=== PATIENT | female | born 1950 | race Caucasian/White ===

== ENCOUNTER → 2016-11-24 | Outpatient (REF) | payer MEDICARE, OTHER ==
[2016-11-24 13:28] LABS: BASO % 0.3 % (0.0-1.0); EOS # 0.2 K/mm3 (0.0-0.50); EOS % 3.2 % (0.0-3.0); LARGE UNSTAINED CELL # 0.1 K/mm3 (0.0-0.4); LARGE UNSTAINED CELL % 1.9 % (0.0-4.0); LYMPH # 1.6 K/mm3 (1.5-4.5); LYMPH % 28.7 % (24.0-44.0); MEAN CORPUSCULAR HEMOGLOBIN 30.4 pg (27.0-33.0); MEAN CORPUSCULAR HGB CONC 33.7 g/dl (32.0-36.5); MEAN CORPUSCULAR VOLUME 90.4 fl (80.0-96.0); MONO # 0.4 K/mm3 (0.0-0.8); NEUTROPHILS # 3.2 K/mm3 (1.8-7.7); PLATELET COUNT, AUTOMATED 263 k/mm3 (150-450); RED CELL DISTRIBUTION WIDTH 11.8 % (11.5-14.5); WHITE BLOOD COUNT 5.5 K/mm3 (4.0-10.0)
[2016-11-24 14:12] LABS: ALBUMIN 3.8 GM/DL (3.2-5.2); ALBUMIN/GLOBULIN RATIO 1.36 (1.00-1.93); ALKALINE PHOSPHATASE 117 U/L (45-117); ALT/SGPT 27 U/L (12-78); ANION GAP 7 MEQ/L (8-16); AST/SGOT 16 U/L (15-37); BILIRUBIN,TOTAL 0.3 MG/DL (0.2-1.0); BLOOD UREA NITROGEN 12 MG/DL (7-18); CALCIUM LEVEL 8.7 MG/DL (8.8-10.2); CARBON DIOXIDE LEVEL 30 MEQ/L (21-32); CHLORIDE LEVEL 106 MEQ/L (98-107); CHOLESTEROL LEVEL 192 MG/DL (<200); CREATININE FOR GFR 0.68 MG/DL (0.55-1.02); GLOMERULAR FILTRATION RATE > 60.0 (>45); GLUCOSE, FASTING 110 MG/DL (80-110); POTASSIUM SERUM 4.1 MEQ/L (3.5-5.1); SODIUM LEVEL 143 MEQ/L (136-145); TOTAL PROTEIN 6.6 GM/DL (6.4-8.2); TRIGLYCERIDES LEVEL 124 MG/DL (<150)
== END | disposition home or self-care (01) ==
LOC: M LABNEURO 12:11
PROVIDERS: ATTEND Family Medicine
DX: E78.5 Hyperlipidemia, unspecified (principal); E55.9 Vitamin D deficiency, unspecified

== ENCOUNTER → 2017-05-04 | Outpatient (REF) | payer MEDICARE, OTHER | LOC: M LABDRAW1 17:18 | PROVIDERS: ATTEND Family Medicine | DX: M12.9 Arthropathy, unspecified (principal) ==

== ENCOUNTER → 2017-09-01 | Outpatient (CLI) | payer MEDICARE, OTHER ==
--- NOTE | 2017-09-01 13:14 | REP ---
Bilateral screening digital mammogram: There are no palpable abnormalities or other breast complaints. The patient states she has not had a clinical breast exam in over a year. Comparison is 07/22/2012. There is dense breast parenchyma, unchanged. There has been no interval development of masses, areas of structural distortion or clusters of microcalcifications typical of malignancy. Impression: There is no evidence of malignancy. BIRADS category 1 negative mammogram. The patient should have a repeat mammogram in 1 year. This mammogram was interpreted with the aid of an FDA-approved computer-aided detection system. A. Negative x-ray reports should not delay biopsy if a dominant or clinically suspicious mass is present. B. Not all breast cancers are t identified by x-ray. C. Adenosis and dense breasts may obscure an underlying neoplasm. The patient letter M1 dense breasts.
--- NOTE | 2017-09-02 08:24 | DEXA ---
AP SPINE L1 - L4 0.937 -2.1 -0.5 LT FEMUR TOTAL 0.737 -2.1 -0.8 RT FEMUR TOTAL 0.768 -1.9 -0.6 TOTAL BODY TOTAL OTHER DUAL FEMUR FRAX* ASSESSMENT Risk factors: 10 year probability of fracture Major osteoporotic fracture % Hip fracture % COMMENTS: There is low bone density of the spine. There is osteoporosis of the hips. The density of the spine has decreased 20.4% since the initial exam on 2002. The spine density has decreased 2.0% since the most recent exam on 11/27/2014. The density of the left hip has decreased 18.1% since the initial exam on 2002. The density of the left hip has decreased 1.6% since the most recent exam on . The density of the right hip has decreased 13.0% since the most recent exam on 11/29/2002. The density of the right hip has increased 0.3% since the most recent exam on . FOLLOW-UP: Recommendation for the next bone density exam: 2 years. ELISEO
== END ==
LOC: M WHC 10:59
PROVIDERS: ATTEND Family Medicine
DX: M85.80 Other specified disorders of bone density and structure, unspecified site (principal); Z12.31 Encounter for screening mammogram for malignant neoplasm of breast; M94.9 Disorder of cartilage, unspecified
CPT/HCPCS: 77080; G0202

== ENCOUNTER 2017-11-11 07:27 | Day surgery (SDC) | payer MEDICARE, OTHER ==
[2017-11-11] MEDS ORDERED: PROPOFOL 200 MG/20 ML VIAL As Ordered (07:41)
[2017-11-11] MEDS ORDERED: LIDOCAINE 2% MDV 20 ML VIAL As Ordered ×2 (07:41→08:04)
[2017-11-11] MEDS: NS 1,000 ML IV (07:41)
== END 2017-11-11 08:44 | disposition home or self-care (01) ==
LOC: M OPP 07:27
DX: R12 Heartburn (principal); K21.9 Gastro-esophageal reflux disease without esophagitis; K22.719 Barrett's esophagus with dysplasia, unspecified; L30.9 Dermatitis, unspecified; J45.909 Unspecified asthma, uncomplicated; E78.00 Pure hypercholesterolemia, unspecified; Z79.2 Long term (current) use of antibiotics; Z79.899 Other long term (current) drug therapy; Z78.0 Asymptomatic menopausal state; Z91.89 Other specified personal risk factors, not elsewhere classified; Z90.49 Acquired absence of other specified parts of digestive tract; Z87.891 Personal history of nicotine dependence; Z87.790 Personal history of (corrected) congenital malformations of face and neck
CPT/HCPCS: 43239

== ENCOUNTER → 2017-12-29 | Outpatient (REF) | payer MEDICARE, OTHER ==
[2017-12-29 17:56] LABS: COMPLEMENT C3 109 MG/DL (90-180); COMPLEMENT C4 38.9 MG/DL (10-40); IMMUNOGLOBULIN E 32.2 IU/ML (<100); IMMUNOGLOBULIN G 639 MG/DL (681-1648); IMMUNOGLOBULIN M 87.2 MG/DL (40-230)
[2018-01-04 00:06] LABS: ALPHA 1 ANTITRYPSIN 87 mg/dL (90-200)
[2018-01-04 00:06] LABS: D001-IgE D pteronyssinus <0.10 kU/L (Class 0); E001-IgE Cat Epith/Dander 0.19 kU/L (Class 0/I); E005-IgE Dog Dander 0.73 kU/L (Class II); F002-IgE Milk < 0.10 kU/L (Class 0); F004-IgE Wheat < 0.10 kU/L (Class 0); F013-IgE Peanut < 0.10 kU/L (Class 0); F014-IgE Soybean < 0.10 kU/L (Class 0); F026-IgE Pork < 0.10 kU/L (Class 0); F027-IgE Beef < 0.10 kU/L (Class 0); F245-IgE Egg, Whole < 0.10 kU/L (Class 0); FX02-IgE Food Mix (Sea Foods) Negative (.); G002-IgE Bermuda Grass 0.11 kU/L (Class 0/I); G008-IgE Kentucky Bluegrass 0.71 kU/L (Class II); M001-IgE Penicillium chrysogen < 0.10 kU/L (Class 0); M002 IgE Cladosporium herbaru < 0.10 kU/L (Class 0); M003 IgE Aspergillus fumigatu < 0.10 kU/L (Class 0); M006-IgE Alternaria alternata < 0.10 kU/L (Class 0); T001-IgE Maple/Box Elder < 0.10 kU/L (Class 0); T003-IgE Common Silver Birch < 0.10 kU/L (Class 0); T006-IgE Cedar, Mountain < 0.10 kU/L (Class 0); T007-IgE Oak, White < 0.10 kU/L (Class 0); T008-IgE Elm, American < 0.10 kU/L (Class 0); T015-IgE Ash, White < 0.10 kU/L (Class 0); T041-IgE Hickory, White < 0.10 kU/L (Class 0); T070-IgE White Mulberry < 0.10 kU/L (Class 0); W001-IgE Ragweed, Short 1.03 kU/L (Class II); W009-IgE Plantain, English < 0.10 kU/L (Class 0); W014-IgE Pigweed, Rough < 0.10 kU/L (Class 0); W018-IgE Sheep Sorrel < 0.10 kU/L (Class 0)
== END ==
LOC: M LABNEURO 14:15
DX: J30.89 Other allergic rhinitis (principal); J30.1 Allergic rhinitis due to pollen; J30.81 Allergic rhinitis due to animal (cat) (dog) hair and dander
CPT/HCPCS: 82785

== ENCOUNTER → 2018-01-01 | Outpatient (REF) | payer MEDICARE, OTHER ==
[2018-01-01 13:23] LABS: ALKALINE PHOSPHATASE 106 U/L (45-117); ALT/SGPT 31 U/L (12-78); ANION GAP 5 MEQ/L (8-16); AST/SGOT 25 U/L (7-37); BILIRUBIN,TOTAL 0.3 MG/DL (0.2-1.0); BLOOD UREA NITROGEN 13 MG/DL (7-18); CALCIUM LEVEL 8.5 MG/DL (8.8-10.2); CARBON DIOXIDE LEVEL 29 MEQ/L (21-32); CHLORIDE LEVEL 107 MEQ/L (98-107); CREATININE FOR GFR 0.64 MG/DL (0.55-1.30); GLOMERULAR FILTRATION RATE > 60.0 (>45); GLUCOSE, FASTING 112 MG/DL (70-100); POTASSIUM SERUM 4.6 MEQ/L (3.5-5.1); SODIUM LEVEL 141 MEQ/L (136-145)
[2018-01-01 13:24] LABS: ALBUMIN 3.7 GM/DL (3.2-5.2); ALBUMIN/GLOBULIN RATIO 1.28 (1.00-1.93); CHOLESTEROL LEVEL 200 MG/DL (<200); CHOLESTEROL RISK RATIO 4.166 (<5); HDL CHOLESTEROL 48 MG/DL (>40); NON-HDL-C 152 MG/DL; TOTAL PROTEIN 6.6 GM/DL (6.4-8.2); TRIGLYCERIDES LEVEL 175 MG/DL (<150)
[2018-01-01 13:53] LABS: BASO % 0.4 % (0.0-1.0); EOS # 0.2 10^3/uL (0.0-0.50); EOS % 3.9 % (0.0-3.0); HEMATOCRIT 37.9 % (36.0-47.0); HEMOGLOBIN 12.9 g/dl (12.0-16.0); IMMATURE GRANULOCYTE % 0.4 % (0-3.0); LYMPH # 1.3 10^3/uL (1.5-4.5); LYMPH % 25.3 % (24.0-44.0); MEAN CORPUSCULAR HEMOGLOBIN 31.3 pg (27.0-33.0); MONO # 0.5 10^3/uL (0.0-0.8); MONO % 10.1 % (0.0-5.0); NEUTROPHILS # 3.1 10^3/uL (1.8-7.7); NEUTROPHILS % 59.9 % (36.0-66.0); PLATELET COUNT, AUTOMATED 220 10^3/uL (150-450); RED BLOOD COUNT 4.12 10^6/uL (4.00-5.40); RED CELL DISTRIBUTION WIDTH 12.1 % (11.5-14.5); WHITE BLOOD COUNT 5.1 10^3/uL (4.0-10.0)
== END ==
LOC: M LABNEURO 09:21
DX: E78.2 Mixed hyperlipidemia (principal)
CPT/HCPCS: 80053

== ENCOUNTER → 2018-12-14 | Outpatient (CLI) | payer MEDICARE, OTHER ==
[~2018-12-14] MED LIST: BREO1INH3 INH; CENT1TAB19 PO; SIMV10TA2 PO; VITA50005
[2018-12-14 12:03] LABS: ALBUMIN 3.6 GM/DL (3.2-5.2); ALT/SGPT 23 U/L (12-78); BILIRUBIN,TOTAL 0.4 MG/DL (0.2-1.0); BLOOD UREA NITROGEN 12 MG/DL (7-18); CALCIUM LEVEL 8.7 MG/DL (8.8-10.2); CARBON DIOXIDE LEVEL 29 MEQ/L (21-32); CHLORIDE LEVEL 105 MEQ/L (98-107); CHOLESTEROL LEVEL 209 MG/DL (<200); CHOLESTEROL RISK RATIO 4.265 (<5); CREATININE FOR GFR 0.56 MG/DL (0.55-1.30); GLOMERULAR FILTRATION RATE > 60.0 (>45); GLUCOSE, FASTING 110 MG/DL (70-100); HDL CHOLESTEROL 49 MG/DL (>40); LDL CHOLESTEROL 122 MG/DL (<100); NON-HDL-C 160 MG/DL; POTASSIUM SERUM 4.2 MEQ/L (3.5-5.1); SODIUM LEVEL 140 MEQ/L (136-145); TOTAL PROTEIN 6.4 GM/DL (6.4-8.2); TRIGLYCERIDES LEVEL 188 MG/DL (<150)
== END ==
LOC: M LAB 10:27
PROVIDERS: ATTEND Family Medicine
DX: E78.2 Mixed hyperlipidemia (principal)

== ENCOUNTER → 2019-01-21 | Outpatient (CLI) | payer MEDICARE, OTHER ==
--- NOTE | 2019-01-21 16:44 | REPMRS ---
Patient History The patient states she has not had a clinical breast exam in over a year. Family history of breast cancer at age 50 or over in mother, breast cancer at age 50 or over in maternal grandmother, colorectal cancer at age 50 or over in maternal grandfather, breast cancer at age 50 or over in maternal cousin, breast cancer at age 50 or over in maternal cousin, colorectal cancer in maternal cousin, breast cancer in maternal cousin. Benign excisional biopsy of the right breast, 1973. Benign core biopsy of the left breast. Digital Woman Screen Mammo: January 21, 2019 - Exam #: [id number] Bilateral CC and MLO view(s) were taken. Technologist: Kiki yLn Technologist Prior study comparison: September 01, 2017, digital woman screen mammo performed at [facility]. March 12, 2016, digital woman screen mammo performed at [facility]. FINDINGS: The breast tissue is heterogeneously dense. This may lower the sensitivity of mammography. There has been no change in the appearance of the mammogram from the prior studies. There is a moderate amount of residual fibroglandular tissue which is fairly symmetric. There is no interval development of dominant mass, architectural distortion, or clustered microcalcification typical of malignancy. Scattered lymph nodes are seen in the axillae. 3-D tomosynthesis shows no additional findings. No significant changes when compared with prior studies. Assessment: BI-RADS/ACR category 2 mammogram. Benign Findings. Recommendation Routine screening mammogram in 1 year (for women over age 40). This mammogram was interpreted with the aid of an FDA-approved computer-aided dectection system. A. Negative x-ray reports should not delay biopsy if a dominant or clinically suspicious mass is present. B. Four to eight percent of cancers are not identified by mammography. C. Adenosis and dense breast may obscure an underlying neoplasm. Electronically Signed By: Melo Amaro MD 01/21/19 [id number]
== END ==
LOC: M WHC 11:23
PROVIDERS: ATTEND Family Medicine
DX: Z12.31 Encounter for screening mammogram for malignant neoplasm of breast (principal); Z80.3 Family history of malignant neoplasm of breast

== ENCOUNTER → 2019-01-25 | Outpatient (REF) | payer MEDICARE, OTHER ==
[2019-01-25 14:24] LABS: ALBUMIN 3.7 GM/DL (3.2-5.2); ALT/SGPT 25 U/L (12-78); BILIRUBIN,TOTAL 0.3 MG/DL (0.2-1.0); BLOOD UREA NITROGEN 15 MG/DL (7-18); CALCIUM LEVEL 8.6 MG/DL (8.8-10.2); CARBON DIOXIDE LEVEL 27 MEQ/L (21-32); CHLORIDE LEVEL 107 MEQ/L (98-107); CHOLESTEROL LEVEL 171 MG/DL (<200); CHOLESTEROL RISK RATIO 3.166 (<5); CREATININE FOR GFR 0.64 MG/DL (0.55-1.30); GLOMERULAR FILTRATION RATE > 60.0 (>45); GLUCOSE, FASTING 107 MG/DL (70-100); HDL CHOLESTEROL 54 MG/DL (>40); LDL CHOLESTEROL 81 MG/DL (<100); NON-HDL-C 117 MG/DL; POTASSIUM SERUM 4.4 MEQ/L (3.5-5.1); SODIUM LEVEL 140 MEQ/L (136-145); TOTAL PROTEIN 6.8 GM/DL (6.4-8.2); TRIGLYCERIDES LEVEL 179 MG/DL (<150)
== END ==
LOC: M LABNEURO 08:59
PROVIDERS: ATTEND Family Medicine
DX: E78.2 Mixed hyperlipidemia (principal)

== ENCOUNTER → 2019-06-15 | Outpatient (CLI) | payer MEDICARE, OTHER ==
[2019-06-15 17:38] LABS: FREE T4 0.84 NG/DL (0.76-1.46); THYROID STIMULATING HORMONE 0.842 uIU/ML (0.358-3.740)
== END ==
LOC: M LAB 16:16
PROVIDERS: ATTEND Internal Medicine Gastroenterology
DX: R19.7 Diarrhea, unspecified (principal)

== ENCOUNTER → 2019-06-17 | Outpatient (REF) | payer MEDICARE, OTHER | LOC: M LAB REF 15:21 | PROVIDERS: ATTEND Internal Medicine Gastroenterology | DX: R19.7 Diarrhea, unspecified (principal) ==

== ENCOUNTER 2019-08-23 12:08 | Day surgery (SDC) | payer MEDICARE, OTHER ==
[~2019-08-23] VITALS: Ht 149.9 cm; Wt 46.3 kg
[~2019-08-23 12:08] MED LIST changes: +CENT1TAB PO; +EPIN0.3I11 IM; +MONT10TA2 PO; +NS 1,000 ML IV ONE; -VITA50005; +VITA50005 PO; +ZANT150T40 PO; +[UNRECOGNIZED DRUG - OTHER] IM
[2019-08-23] MEDS ORDERED: PROPOFOL 200 MG/20 ML VIAL As Ordered ONE (13:44)
[2019-08-23] MEDS ORDERED: LIDOCAINE 2% INJ 100 MG/5 ML SDV (FOR ANES.) As Ordered ONE (13:44)
--- NOTE | 2019-08-23 14:06 | ROOR ---
Patient Name: Genoveva Krishnamurthy Procedure Date: 08/23/2019 1:40 PM Date of : 1950 Age: 69 Room: [facility] Gender: Female Note Status: Finalized Procedure: Upper GI endoscopy Indications: Heartburn, Endoscopy to assess diarrhea in patient suspected of having disease of the small-bowel Providers: Cesar COHEN MD Referring MD: Karley Johnson MD Requesting Provider: Medicines: Monitored Anesthesia Care Complications: No immediate complications. Procedure: Pre-Anesthesia Assessment: - The heart rate, respiratory rate, oxygen saturations, blood pressure, adequacy of pulmonary ventilation, and response to care were monitored throughout the procedure. The Endoscope was introduced through the mouth, and advanced to the second part of duodenum. The upper GI endoscopy was accomplished without difficulty. The patient tolerated the procedure well. Findings: The Z-line was variable and was found 36 cm from the incisors. This was biopsied with a cold forceps for histology. The exam of the esophagus was otherwise normal. The entire examined stomach was normal. The examined duodenum was normal. Biopsies for histology were taken with a cold forceps for evaluation of celiac disease. Impression: - Z-line variable, 36 cm from the incisors. Biopsied. - Normal stomach. - Normal examined duodenum. Biopsied. Recommendation: - Continue present medications. - Observe patient's clinical course. - Telephone endoscopist for pathology results in 2 weeks. Cesar Cohen MD Cesar COHEN MD 08/23/2019 2:05:54 PM Electronically signed by Cesar COHEN MD Number of Addenda: 0 Note Initiated On: 08/23/2019 1:40 PM Estimated Blood Loss: Estimated blood loss: none.
--- NOTE | 2019-08-23 14:31 | ROOR ---
Patient Name: Genoveva Krishnamurthy Procedure Date: 08/23/2019 1:40 PM Date of : 1950 Age: 69 Room: [facility] Gender: Female Note Status: Finalized Procedure: Colonoscopy Indications: Generalized abdominal pain, Diarrhea Providers: Cesar COHEN MD Referring MD: Karley Johnson MD Requesting Provider: Medicines: Monitored Anesthesia Care Complications: No immediate complications. Procedure: Pre-Anesthesia Assessment: - The heart rate, respiratory rate, oxygen saturations, blood pressure, adequacy of pulmonary ventilation, and response to care were monitored throughout the procedure. The Colonoscope was introduced through the anus and advanced to 10 cm into the ileum. The colonoscopy was performed without difficulty. The patient tolerated the procedure well. The quality of the bowel preparation was good. Findings: The perianal and digital rectal examinations were normal. The terminal ileum appeared normal. Two sessile polyps were found in the ascending colon and cecum. The polyps were diminutive in size. These polyps were removed with a cold snare. Resection and retrieval were complete. Retroflexion in the right colon was performed. Multiple medium-mouthed diverticula were found in the sigmoid colon. The colon (entire examined portion) was moderately redundant. The exam was otherwise normal throughout the examined colon. Biopsies for histology were taken with a cold forceps from the entire colon for evaluation of microscopic colitis. Impression: - The terminal ileum was normal. - Two diminutive polyps in the ascending colon and in the cecum, removed with a cold snare. Resected and retrieved. - Mild diverticulosis in the sigmoid colon. - Small internal hemorrhoids. - The colon is otherwise normal. - Biopsies were taken with a cold forceps from the entire colon for evaluation of microscopic colitis. Recommendation: - Continue present medications. - Await pathology results. - Telephone endoscopist for pathology results in 2 weeks. Cesar Cohen MD Cesar COHEN MD 08/23/2019 2:31:16 PM Electronically signed by Cesar COHEN MD Number of Addenda: 0 Note Initiated On: 08/23/2019 1:40 PM Estimated Blood Loss: Estimated blood loss: none.
[2019-08-23 14:45] VITALS: BP 125/60
== END 2019-08-23 15:01 | disposition home or self-care (01) ==
LOC: M OPP 12:08
PROVIDERS: ATTEND Internal Medicine Gastroenterology
DX: D12.2 Benign neoplasm of ascending colon (principal); D12.0 Benign neoplasm of cecum; Q43.8 Other specified congenital malformations of intestine; R10.84 Generalized abdominal pain; R19.7 Diarrhea, unspecified; K22.8 Other specified diseases of esophagus; R12 Heartburn; K21.9 Gastro-esophageal reflux disease without esophagitis; Z79.899 Other long term (current) drug therapy; Z88.1 Allergy status to other antibiotic agents; Z91.018 Allergy to other foods; Z87.891 Personal history of nicotine dependence

== ENCOUNTER → 2019-10-12 | Outpatient (CLI) | payer MEDICARE, OTHER ==
[~2019-10-12] MED LIST changes: -NS 1,000 ML IV ONE; -SIMV10TA2 PO; +SIMV10TA21 PO
--- NOTE | 2019-10-13 15:46 | DEXA ---
AP SPINE L1 - L4 0.928 -2.2 -0.5 LT FEMUR TOTAL 0.758 -2.0 -0.6 LT NECK 0.662 -2.7 -1.0 RT FEMUR TOTAL 0.782 -1.8 -0.4 RT NECK 0.683 -2.6 -0.9 TOTAL BODY TOTAL OTHER COMMENTS: There is low bone density of the spine. There is osteoporosis of the hips. The decreased density of the spine does not represent a significant change. The increased density of the left hip does represent a significant change. The increased density of the right hip does not represent a significant change. The density of the spine has decreased 21.2% since the initial exam on 11/29/2002. The spine density has decreased 1.0% since the most recent exam on 09/01/2017. The density of the left hip has decreased 15.8% since the initial exam on 11/29/2002. The density of the left hip has increased 2.8% since the most recent exam on 09/01/2017. The density of the right hip has decreased 11.4% since the initial exam on 11/29/2002. The density of the right hip has increased 1.8% since the most recent exam on 09/01/2017. FOLLOW-UP: Recommendation for the next bone density exam: 2 years. ELISEO
== END ==
LOC: M WHC 11:09
PROVIDERS: ATTEND Family Medicine
DX: M89.9 Disorder of bone, unspecified (principal)

== ENCOUNTER → 2020-02-20 | Outpatient (CLI) | payer MEDICARE, OTHER ==
[~2020-02-20] MED LIST changes: -MONT10TA2 PO; +MONT10TA4 PO
[2020-02-22 07:30] LABS: D001-IgE D pteronyssinus <0.10 kU/L (Class 0); E001-IgE Cat Epith/Dander 0.23 kU/L (Class 0/I); E003-IGE HORSE EPITHELIA/DAND <0.10 kU/L (Class 0); E004-IGE COW DANDER <0.10 kU/L (Class 0); E005-IgE Dog Dander 0.99 kU/L (Class II); F002-IgE Milk < 0.10 kU/L (Class 0); F004-IgE Wheat < 0.10 kU/L (Class 0); F013-IgE Peanut < 0.10 kU/L (Class 0); F014-IgE Soybean < 0.10 kU/L (Class 0); F026-IgE Pork < 0.10 kU/L (Class 0); F027-IgE Beef < 0.10 kU/L (Class 0); F245-IgE Egg, Whole < 0.10 kU/L (Class 0); FX02-IgE Food Mix (Sea Foods) Negative (.); G002-IgE Bermuda Grass 0.14 kU/L (Class 0/I); G008-IgE Kentucky Bluegrass 0.95 kU/L (Class II); M001-IgE Penicillium chrysogen < 0.10 kU/L (Class 0); M002 IgE Cladosporium herbaru < 0.10 kU/L (Class 0); M003 IgE Aspergillus fumigatu < 0.10 kU/L (Class 0); M006-IgE Alternaria alternata < 0.10 kU/L (Class 0); T001-IgE Maple/Box Elder < 0.10 kU/L (Class 0); T003-IgE Common Silver Birch < 0.10 kU/L (Class 0); T006-IgE Cedar, Mountain < 0.10 kU/L (Class 0); T007-IgE Oak, White < 0.10 kU/L (Class 0); T008-IgE Elm, American < 0.10 kU/L (Class 0); T015-IgE Ash, White < 0.10 kU/L (Class 0); T041-IgE Hickory, White < 0.10 kU/L (Class 0); T070-IgE White Mulberry < 0.10 kU/L (Class 0); W001-IgE Ragweed, Short 0.69 kU/L (Class II); W009-IgE Plantain, English < 0.10 kU/L (Class 0); W014-IgE Pigweed, Rough < 0.10 kU/L (Class 0); W018-IgE Sheep Sorrel < 0.10 kU/L (Class 0)
== END ==
LOC: M LAB 10:30
PROVIDERS: ATTEND Nurse Practitioner Family
DX: J30.1 Allergic rhinitis due to pollen (principal); J30.81 Allergic rhinitis due to animal (cat) (dog) hair and dander; R05 Cough; J32.9 Chronic sinusitis, unspecified; J30.89 Other allergic rhinitis; E78.2 Mixed hyperlipidemia

== ENCOUNTER → 2020-02-20 | Outpatient (CLI) | payer MEDICARE, OTHER ==
[2020-02-20 11:47] LABS: ALBUMIN 3.8 GM/DL (3.2-5.2); ALT/SGPT 32 U/L (12-78); BILIRUBIN,TOTAL 0.6 MG/DL (0.2-1.0); BLOOD UREA NITROGEN 14 MG/DL (7-18); CARBON DIOXIDE LEVEL 30 MEQ/L (21-32); CHLORIDE LEVEL 107 MEQ/L (98-107); CHOLESTEROL LEVEL 184 MG/DL (<200); CHOLESTEROL RISK RATIO 4.088 (<5); CREATININE FOR GFR 0.73 MG/DL (0.55-1.30); GLOMERULAR FILTRATION RATE > 60.0 (>45); GLUCOSE, FASTING 110 MG/DL (70-100); HDL CHOLESTEROL 45 MG/DL (>40); LDL CHOLESTEROL 101 MG/DL (<100); NON-HDL-C 139 MG/DL; POTASSIUM SERUM 4.8 MEQ/L (3.5-5.1); SODIUM LEVEL 140 MEQ/L (136-145); TOTAL PROTEIN 6.9 GM/DL (6.4-8.2); TRIGLYCERIDES LEVEL 190 MG/DL (<150)
== END ==
LOC: M LAB 10:35
PROVIDERS: ATTEND Nurse Practitioner Family
DX: E78.2 Mixed hyperlipidemia (principal)

== ENCOUNTER → 2020-07-10 | Outpatient (CLI) | payer MEDICARE, OTHER ==
[~2020-07-10] MED LIST changes: +METHACHOLINE KIT (J7674) INH ONE
--- NOTE | 2020-08-08 07:13 | REP ---
CHEST X-RAY: CLINICAL: Cough. TECHNIQUE: PA and lateral COMPARISON: 04/02/07, 02/13/09, 03/24/10 FINDINGS: Mediastinum and cardiac silhouette are normal. Lung mcdonough demonstrate chronic appearing changes. No focal consolidation, effusion or pneumothorax. Skeletal structures are intact. IMPRESSION: No acute cardiopulmonary process or focal consolidation. MTDD
== END ==
LOC: M CARPUL 13:32
PROVIDERS: ATTEND Nurse Practitioner Family
DX: R05 Cough (principal)

== ENCOUNTER → 2020-10-09 | Outpatient (CLI) | payer MEDICARE, OTHER ==
[~2020-10-09] MED LIST changes: -METHACHOLINE KIT (J7674) INH ONE; -MONT10TA4 PO; +MONT5TAB2 PO
--- NOTE | 2020-10-09 15:36 | REP ---
INDICATION: RIGHT WRIST PAIN. COMPARISON: None. TECHNIQUE: Four views. FINDINGS: Four views of the right wrist demonstrate chondrocalcinosis in the ulnotrochlear articulation. There is an area of soft tissue swelling at the ulnar aspect of the carpus. No fracture is seen. Cyst there is diffuse osteopenia. Some of the calcifications seen on the frontal view are along the volar aspect of the wrist proximal to the piece of form bone. There is mild osteoarthritic spurring at the 1st carpometacarpal articulation. No other abnormality. IMPRESSION: Chondrocalcinosis and volar periarticular calcifications. There is ulnar side carpal soft tissue swelling. No fracture is seen. <Electronically signed by Piero Salinas > 10/09/20 [id number]
== END ==
LOC: M RAD 14:44
PROVIDERS: ATTEND Physician Assistant Medical
DX: M11.231 Other chondrocalcinosis, right wrist (principal)

== ENCOUNTER → 2020-12-26 | Outpatient (CLI) | payer MEDICARE, OTHER ==
[~2020-12-26] MED LIST changes: +MONT10TA10 PO; -MONT5TAB2 PO
--- NOTE | 2020-12-26 13:30 | REPMRS ---
Patient History The patient states she has not had a clinical breast exam in over a year. Patient is postmenopausal and has history of other cancer at age 45. Family history of breast cancer at age 50 or over in mother, breast cancer at age 50 or over in maternal grandmother, colorectal cancer at age 50 or over in maternal grandfather, breast cancer at age 50 or over in maternal cousin, breast cancer at age 50 or over in maternal cousin, colorectal cancer in maternal cousin, breast cancer in maternal cousin. Benign excisional biopsy of the right breast, 1973. Benign core biopsy of the left breast. No Hormone Replacement Therapy Digital Woman Screen Mammo: December 26, 2020 - Exam #: [id number] Bilateral CC and MLO view(s) were taken. Technologist: Dianne Vu, Technologist Prior study comparison: January 21, 2019, bilateral digital woman screen mammo performed at [facility]. September 01, 2017, digital woman screen mammo performed at [facility]. March 12, 2016, digital woman screen mammo performed at [facility]. FINDINGS: There are scattered fibroglandular densities. The Volpara volumetric breast density category is: B. There is a moderate amount of residual fibroglandular tissue which is fairly symmetric. There is no interval development of dominant mass, architectural distortion, or grouped microcalcification typical of malignancy. There has been no change in the appearance of the mammogram from the prior studies. 3-D tomosynthesis shows no additional findings. Assessment: BI-RADS/ACR category 1 mammogram. Negative Mammogram. Recommendation Routine screening mammogram of both breasts in 1 year (for women over age 40). This patient's [facility] Lifetime Breast Cancer RIsk is estimated at 13.7 %. This mammogram was interpreted with the aid of an FDA-approved computer-aided dectection system. Electronically Signed By: Piero Salinas MD 12/26/20 0117
== END ==
LOC: M WHC 12:27
PROVIDERS: ATTEND Nurse Practitioner Family
DX: Z12.31 Encounter for screening mammogram for malignant neoplasm of breast (principal); Z80.3 Family history of malignant neoplasm of breast; Z80.0 Family history of malignant neoplasm of digestive organs

== ENCOUNTER → 2021-03-14 | Outpatient (CLI) | payer MEDICARE, OTHER ==
[2021-03-14 14:19] LABS: ALBUMIN 3.8 GM/DL (3.2-5.2); ALT/SGPT 29 U/L (12-78); BILIRUBIN,TOTAL 0.3 MG/DL (0.2-1.0); BLOOD UREA NITROGEN 13 MG/DL (7-18); CALCIUM LEVEL 9.2 MG/DL (8.8-10.2); CARBON DIOXIDE LEVEL 30 MEQ/L (21-32); CHLORIDE LEVEL 105 MEQ/L (98-107); CHOLESTEROL LEVEL 291 MG/DL (<200); CHOLESTEROL RISK RATIO 6.326 (<5); CREATININE FOR GFR 0.64 MG/DL (0.55-1.30); GLOMERULAR FILTRATION RATE > 60.0 (>39); GLUCOSE, FASTING 105 MG/DL (70-100); HDL CHOLESTEROL 46 MG/DL (>40); NON-HDL-C 245 MG/DL; POTASSIUM SERUM 4.5 MEQ/L (3.5-5.1); SODIUM LEVEL 138 MEQ/L (136-145); TOTAL PROTEIN 6.9 GM/DL (6.4-8.2); TRIGLYCERIDES LEVEL 465 MG/DL (<150)
== END ==
LOC: M LAB 12:43
PROVIDERS: ATTEND Nurse Practitioner Family
DX: E78.2 Mixed hyperlipidemia (principal)

== ENCOUNTER → 2022-02-07 | Outpatient (CLI) | payer MEDICARE, OTHER ==
[~2022-02-07] MED LIST changes: -MONT10TA10 PO; +MONT10TA97 PO
== END ==
LOC: M WHC 11:24
PROVIDERS: ATTEND Nurse Practitioner Family
DX: Z12.31 Encounter for screening mammogram for malignant neoplasm of breast (principal)

== ENCOUNTER → 2022-04-22 | Outpatient (CLI) | payer MEDICARE, OTHER ==
[2022-04-22 10:38] LABS: ALBUMIN 3.4 GM/DL (3.2-5.2); ALT/SGPT 26 U/L (12-78); BILIRUBIN,TOTAL 0.4 MG/DL (0.2-1.0); BLOOD UREA NITROGEN 12 MG/DL (7-18); CALCIUM LEVEL 8.5 MG/DL (8.8-10.2); CARBON DIOXIDE LEVEL 28 MEQ/L (21-32); CHLORIDE LEVEL 108 MEQ/L (98-107); CHOLESTEROL LEVEL 202 MG/DL (<200); CHOLESTEROL RISK RATIO 4.488 (<5); CREATININE FOR GFR 0.68 MG/DL (0.55-1.30); GLOMERULAR FILTRATION RATE > 60.0 (>39); GLUCOSE, FASTING 108 MG/DL (70-100); HDL CHOLESTEROL 45 MG/DL (>40); LDL CHOLESTEROL 93 MG/DL (<100); NON-HDL-C 157 MG/DL; POTASSIUM SERUM 4.3 MEQ/L (3.5-5.1); SODIUM LEVEL 139 MEQ/L (136-145); TOTAL PROTEIN 6.6 GM/DL (6.4-8.2); TRIGLYCERIDES LEVEL 322 MG/DL (<150)
== END ==
LOC: M LAB 09:14
PROVIDERS: ATTEND Nurse Practitioner Family
DX: E78.2 Mixed hyperlipidemia (principal)

== ENCOUNTER → 2022-06-13 | Outpatient (CLI) | payer MEDICARE, OTHER | LOC: M WHC 10:17 | PROVIDERS: ATTEND Nurse Practitioner Family | DX: Z01.419 Encounter for gynecological examination (general) (routine) without abnormal findings (principal); Z13.820 Encounter for screening for osteoporosis; M85.851 Other specified disorders of bone density and structure, right thigh; M85.852 Other specified disorders of bone density and structure, left thigh; M85.88 Other specified disorders of bone density and structure, other site | CPT/HCPCS: 77080; G0101 ==

== ENCOUNTER → 2022-10-16 | Outpatient (CLI) | payer MEDICARE, OTHER ==
[~2022-10-16] MED LIST changes: +ERGO500029 PO
== END ==
LOC: M LABSMTC 10:56
PROVIDERS: ATTEND Anesthesiology
DX: Z01.812 Encounter for preprocedural laboratory examination (principal); Z11.52 Encounter for screening for COVID-19

== ENCOUNTER 2022-10-21 12:41 | Day surgery (SDC) | payer MEDICARE, OTHER ==
[~2022-10-21] VITALS: Ht 149.9 cm; Wt 50.3 kg
[~2022-10-21 12:41] MED LIST changes: +NS 1,000 ML IV ONE
[2022-10-21] MEDS ORDERED: propofoL 200 MG/20 ML VIAL As Ordered ONE (14:33)
[2022-10-21] MEDS ORDERED: LIDOCAINE 2% 100MG/5ML SDV (FOR ANES.) As Ordered ONE (14:34)
[2022-10-21 15:12] VITALS: BP 169/76
== END 2022-10-21 15:17 | disposition home or self-care (01) ==
LOC: M OPP 12:41
PROVIDERS: ATTEND Internal Medicine Gastroenterology
DX: K22.710 Barrett's esophagus with low grade dysplasia (principal); K22.89 Other specified disease of esophagus; Z79.02 Long term (current) use of antithrombotics/antiplatelets; Z79.899 Other long term (current) drug therapy; Z88.1 Allergy status to other antibiotic agents; Z91.018 Allergy to other foods; Z80.0 Family history of malignant neoplasm of digestive organs; Z80.3 Family history of malignant neoplasm of breast; E78.00 Pure hypercholesterolemia, unspecified; L20.9 Atopic dermatitis, unspecified; M19.90 Unspecified osteoarthritis, unspecified site; J45.909 Unspecified asthma, uncomplicated; Z85.828 Personal history of other malignant neoplasm of skin

== ENCOUNTER 2023-03-24 12:04 | Day surgery (SDC) | payer MEDICARE, OTHER ==
[~2023-03-24] VITALS: Ht 149.9 cm; Wt 51.1 kg
[~2023-03-24 12:04] MED LIST changes: +ESOM20CA25 PO
[2023-03-24] MEDS ORDERED: ALBUTEROL SULFATE 2.5MG/0.5ML INH NEB SOLN As Ordered ONE (13:59)
[2023-03-24] MEDS ORDERED: ALBUTEROL SULFATE 2.5MG/0.5ML INH NEB SOLN INH ONE (14:15)
[2023-03-24] MEDS ORDERED: LIDOCAINE 2% 100MG/5ML SDV (FOR ANES.) As Ordered ONE (14:26)
[2023-03-24] MEDS ORDERED: propofoL 200 MG/20 ML VIAL As Ordered ONE ×2 (14:26→14:39)
[2023-03-24 15:05] VITALS: BP 171/76
== END 2023-03-24 15:12 | disposition home or self-care (01) ==
LOC: M OPP 12:04
PROVIDERS: ATTEND Internal Medicine Gastroenterology
DX: K22.89 Other specified disease of esophagus (principal); K22.710 Barrett's esophagus with low grade dysplasia; K21.9 Gastro-esophageal reflux disease without esophagitis; Z79.02 Long term (current) use of antithrombotics/antiplatelets; Z79.1 Long term (current) use of non-steroidal anti-inflammatories (NSAID); Z79.51 Long term (current) use of inhaled steroids; Z79.899 Other long term (current) drug therapy; Z88.1 Allergy status to other antibiotic agents; Z91.018 Allergy to other foods

== ENCOUNTER → 2023-04-15 | Outpatient (CLI) | payer MEDICARE, OTHER ==
[~2023-04-15] MED LIST changes: -NS 1,000 ML IV ONE
== END ==
LOC: M RAD 17:49
PROVIDERS: ATTEND Physician Assistant
DX: M25.432 Effusion, left wrist (principal)

== ENCOUNTER → 2023-04-15 | Outpatient (CLI) | payer MEDICARE, OTHER ==
[2023-04-15 17:48] LABS: COMPLEMENT C3 131.8 MG/DL (90.0-170.0); COMPLEMENT C4 48.4 MG/DL (12-36); IMMUNOGLOBULIN M 104.1 MG/DL (50-300)
[2023-04-15 17:51] LABS: IMMUNOGLOBULIN E 34.7 IU/ML (0-378)
== END ==
LOC: M LAB 16:20
PROVIDERS: ATTEND Allergy & Immunology
DX: J30.1 Allergic rhinitis due to pollen (principal); R05.3 Chronic cough; M25.432 Effusion, left wrist

== ENCOUNTER → 2023-04-23 | Outpatient (CLI) | payer MEDICARE, OTHER ==
[2023-04-23 14:18] LABS: ALBUMIN 3.5 G/DL (3.2-5.2); ALKALINE PHOSPHATASE 109 U/L (46-116); ALT/SGPT 20 U/L (7.0-40); AST/SGOT 14 U/L (<34); BILIRUBIN,TOTAL 0.5 MG/DL (0.3-1.2); BLOOD UREA NITROGEN 12 MG/DL (9-23); CALCIUM LEVEL 9.6 MG/DL (8.3-10.6); CARBON DIOXIDE LEVEL 30 MMOL/L (20-31); CHLORIDE LEVEL 104 MMOL/L (98-107); CHOLESTEROL LEVEL 182 MG/DL (<200); CHOLESTEROL RISK RATIO 4.44 (<5); CREATININE FOR GFR 0.64 MG/DL (0.55-1.30); GLOMERULAR FILTRATION RATE > 60.0 (>39); GLUCOSE, FASTING 108 MG/DL (74-106); HDL CHOLESTEROL 40.9 MG/DL (>40); LDL CHOLESTEROL 96.5 MG/DL (<100); NON-HDL-C 141.1 MG/DL; POTASSIUM SERUM 4.3 MMOL/L (3.5-5.1); SODIUM LEVEL 140 MMOL/L (136-145); TOTAL PROTEIN 6.3 G/DL (5.7-8.2); TRIGLYCERIDES LEVEL 223 MG/DL (<150)
== END ==
LOC: M PLALAB 10:43
PROVIDERS: ATTEND Nurse Practitioner Family
DX: E78.2 Mixed hyperlipidemia (principal)

== ENCOUNTER → 2023-05-07 | Outpatient (CLI) | payer MEDICARE, OTHER | LOC: M WHC 12:31 | PROVIDERS: ATTEND Family Medicine | DX: Z12.31 Encounter for screening mammogram for malignant neoplasm of breast (principal) ==

== ENCOUNTER 2023-07-21 12:43 | Day surgery (SDC) | payer MEDICARE, OTHER ==
[~2023-07-21] VITALS: Ht 149.9 cm; Wt 49.8 kg
[~2023-07-21 12:43] MED LIST changes: +BREO1INH INH; +NS 1,000 ML IV ONE; +SIMV20TA22 PO; +VENTAER INH
[2023-07-21] MEDS ORDERED: LIDOCAINE 2% 100MG/5ML SDV (FOR ANES.) As Ordered ONE (13:43)
[2023-07-21] MEDS ORDERED: fentaNYL 100 MCG/2 ML INJECTION As Ordered ONE (13:44)
[2023-07-21] MEDS ORDERED: propofoL 200 MG/20 ML VIAL As Ordered ONE (13:44)
[2023-07-21 14:07] VITALS: TEMP 97.9
[2023-07-21 14:22] VITALS: BP 144/67; O2SAT 99
== END 2023-07-21 14:33 | disposition home or self-care (01) ==
LOC: M OPP 12:43
PROVIDERS: ATTEND Internal Medicine Gastroenterology
DX: K22.710 Barrett's esophagus with low grade dysplasia (principal); K21.9 Gastro-esophageal reflux disease without esophagitis; M19.90 Unspecified osteoarthritis, unspecified site; J45.909 Unspecified asthma, uncomplicated; K44.9 Diaphragmatic hernia without obstruction or gangrene; E78.00 Pure hypercholesterolemia, unspecified; Z85.828 Personal history of other malignant neoplasm of skin; Z88.1 Allergy status to other antibiotic agents; Z91.018 Allergy to other foods; Z79.899 Other long term (current) drug therapy; Z80.0 Family history of malignant neoplasm of digestive organs; Z80.3 Family history of malignant neoplasm of breast
CPT/HCPCS: 43270; J3010

== ENCOUNTER 2023-11-12 12:02 | Day surgery (SDC) | payer MEDICARE, OTHER ==
[~2023-11-12] VITALS: Ht 149.9 cm; Wt 51.5 kg
[2023-11-12] MEDS ORDERED: LIDOCAINE 2% 100MG/5ML SDV (FOR ANES.) As Ordered ONE (12:13)
[2023-11-12] MEDS ORDERED: propofoL 200 MG/20 ML VIAL As Ordered ONE (12:13)
[2023-11-12] MEDS ORDERED: fentaNYL 100 MCG/2 ML INJECTION As Ordered ONE (12:14)
[2023-11-12 12:59] VITALS: TEMP 97.3
[2023-11-12 13:22] VITALS: BP 160/84; O2SAT 99
== END 2023-11-12 13:32 | disposition home or self-care (01) ==
LOC: M OPP 12:02
PROVIDERS: ATTEND Internal Medicine Gastroenterology
DX: K22.710 Barrett's esophagus with low grade dysplasia (principal); K22.89 Other specified disease of esophagus; K21.9 Gastro-esophageal reflux disease without esophagitis; Z87.19 Personal history of other diseases of the digestive system; J45.909 Unspecified asthma, uncomplicated; E78.00 Pure hypercholesterolemia, unspecified; Z79.899 Other long term (current) drug therapy
CPT/HCPCS: 43270; J3010

== ENCOUNTER 2024-02-05 09:57 | Day surgery (SDC) | payer MEDICARE, OTHER ==
[~2024-02-05] VITALS: Ht 149.9 cm; Wt 49.9 kg
[2024-02-05] MEDS: NS 1,000 ML IV ONE (06:00)
[~2024-02-05 09:57] MED LIST changes: -NS 1,000 ML IV ONE
[2024-02-05] MEDS ORDERED: fentaNYL 100 MCG/2 ML INJECTION As Ordered ONE (10:45)
[2024-02-05] MEDS ORDERED: propofoL 200 MG/20 ML VIAL As Ordered ONE (11:21)
[2024-02-05 11:22] VITALS: TEMP 98.4
[2024-02-05 11:50] VITALS: BP 129/62; O2SAT 99
== END 2024-02-05 12:01 | disposition home or self-care (01) ==
LOC: M OPP 09:57
PROVIDERS: ATTEND Internal Medicine Gastroenterology
DX: K22.710 Barrett's esophagus with low grade dysplasia (principal); Z09 Encounter for follow-up examination after completed treatment for conditions other than malignant neoplasm; K22.89 Other specified disease of esophagus; Z87.891 Personal history of nicotine dependence; Z79.02 Long term (current) use of antithrombotics/antiplatelets; Z79.51 Long term (current) use of inhaled steroids; Z79.899 Other long term (current) drug therapy; Z88.1 Allergy status to other antibiotic agents
CPT/HCPCS: 43239; 88305; J3010

== ENCOUNTER → 2024-04-19 | Outpatient (CLI) | payer MEDICARE, OTHER ==
[2024-04-19 13:47] LABS: BASO % 0.4 % (0.0-1.0); EOS # 0.2 10^3/uL (0.0-0.5); EOS % 3.4 % (0.0-3.0); HEMATOCRIT 40.2 % (36.0-47.0); HEMOGLOBIN 13.5 g/dl (12.0-15.5); LYMPH # 1.3 10^3/uL (1.5-5.0); MEAN CORPUSCULAR HEMOGLOBIN 32.1 pg (27.0-33.0); MEAN CORPUSCULAR HGB CONC 33.6 g/dl (32.0-36.5); MEAN CORPUSCULAR VOLUME 95.5 fl (80.0-96.0); MONO # 0.5 10^3/uL (0.0-0.8); MONO % 10.6 % (2.0-8.0); NEUTROPHILS # 2.5 10^3/uL (1.5-8.5); NEUTROPHILS % 56.4 % (36.0-66.0); PLATELET COUNT, AUTOMATED 242 10^3/uL (150-450); RED BLOOD COUNT 4.21 10^6/uL (4.00-5.40); WHITE BLOOD COUNT 4.5 10^3/uL (4.0-10.0)
[2024-04-19 14:20] LABS: ALBUMIN 3.4 G/DL (3.2-5.2); ALKALINE PHOSPHATASE 110 U/L (46-116); ALT/SGPT 21 U/L (7.0-40); AST/SGOT 16 U/L (<34); BILIRUBIN,TOTAL 0.4 MG/DL (0.3-1.2); BLOOD UREA NITROGEN 15 MG/DL (9-23); CALCIUM LEVEL 9.2 MG/DL (8.3-10.6); CARBON DIOXIDE LEVEL 29 MMOL/L (20-31); CHLORIDE LEVEL 108 MMOL/L (98-107); CHOLESTEROL LEVEL 179 MG/DL (<200); CHOLESTEROL RISK RATIO 4.18 (<5); CREATININE FOR GFR 0.63 MG/DL (0.55-1.30); GLOMERULAR FILTRATION RATE > 60.0 (>39); GLUCOSE, FASTING 110 MG/DL (74-106); HDL CHOLESTEROL 42.8 MG/DL (>40); LDL CHOLESTEROL 100.4 MG/DL (<100); NON-HDL-C 136.2 MG/DL; POTASSIUM SERUM 4.9 MMOL/L (3.5-5.1); SODIUM LEVEL 143 MMOL/L (136-145); TOTAL PROTEIN 6.3 G/DL (5.7-8.2); TRIGLYCERIDES LEVEL 179 MG/DL (<150)
== END ==
LOC: M PLALAB 09:46
PROVIDERS: ATTEND Nurse Practitioner Family
DX: E78.2 Mixed hyperlipidemia (principal)

== ENCOUNTER → 2024-04-19 | Outpatient (CLI) | payer MEDICARE, OTHER | LOC: M RAD 11:36 | PROVIDERS: ATTEND Nurse Practitioner Family | DX: J45.30 Mild persistent asthma, uncomplicated (principal) ==

== ENCOUNTER → 2024-11-10 | Outpatient (CLI) | payer MEDICARE, OTHER | LOC: M RAD 09:37 | PROVIDERS: ATTEND Internal Medicine Pulmonary Disease | DX: F17.218 Nicotine dependence, cigarettes, with other nicotine-induced disorders (principal) ==

== ENCOUNTER → 2025-08-03 | Outpatient (CLI) | payer MEDICARE, OTHER | LOC: M RAD 10:58 | PROVIDERS: ATTEND Internal Medicine Pulmonary Disease | DX: R91.8 Other nonspecific abnormal finding of lung field (principal); J98.4 Other disorders of lung ==